=== PATIENT | female | born 2005 | race Two or more races ===

== ENCOUNTER 2024-08-18 13:40 | Emergency (ER) | payer OTHER ==
[2024-08-18] MEDS ORDERED: Lidocaine 1% w/Epinephrine 1:100K 20 ML VIAL ONE (13:54)
[2024-08-18] MEDS ORDERED: Bacitracin 1 PK ONE (14:25)
== END 2024-08-18 14:31 | disposition home or self-care (01) ==
LOC: BURERS 13:40
DX: S01.81XA Laceration without foreign body of other part of head, initial encounter (principal); W26.8XXA Contact with other sharp object(s), not elsewhere classified, initial encounter; Y93.89 Activity, other specified; Y92.69 Other specified industrial and construction area as the place of occurrence of the external cause
CPT/HCPCS: 12011; 99282